=== PATIENT | female | born 1995 | race Caucasian/White ===

== ENCOUNTER 2019-08-23 13:57 | Outpatient (CLI) | payer BC ==
--- NOTE | 2019-08-23 15:40 | ULT ---
Exam: Bilateral renal ultrasound HISTORY: Proteinuria COMPARISON: None FINDINGS: Right kidney: Normal cortical echotexture. No hydronephrosis. Right kidney measurements: 9.8 x 4.0 x 4.6 cm. Left kidney: Normal cortical echotexture. No hydronephrosis Left kidney measurements 4.2 x 10.0 x 4.6 cm. Urinary bladder: Limited evaluation due to inadequate distention. Grossly no abnormality. IMPRESSION: No hydronephrosis.
== END 2019-08-23 13:58 | disposition home or self-care (01) ==
LOC: ULT 13:57
PROVIDERS: ATTEND Internal Medicine Nephrology
DX: R80.9 Proteinuria, unspecified (principal)
CPT/HCPCS: 76770